=== PATIENT | female | born 1990 | race American Indian/Alaskan Native ===

== ENCOUNTER 2016-12-22 11:19 | Emergency (ER) | payer OTHER ==
[2016-12-22 13:29] LABS: Bacteria,Urine 1+ /HPF (Negative); Bilirubin,Urine NEG (Negative); Blood,Urine SM (Negative); Ketones,Urine NEG (Negative); Leukocyte Esterase,Urine LG (Negative); Nitrite,Urine NEG (Negative); Protein,Urine <15 mg/dL mg/dL (Negative); Urobilinogen,Urine < 2.0 mg/dL (<2.0)
[2016-12-22 18:26] VITALS: BP 153/106
--- NOTE | 2016-12-22 18:30 | Emergency Department Report ---
Entered by RYAN PARDO, acting as scribe for ASIYA NICE PA. ED Female HPI - General Chief complaint: Urogenital-Female Stated complaint: BLOOD IN URINE/POSS HIGH BP Time Seen by Provider: 12/22/16 17:53 Source: patient Mode of arrival: Ambulatory Limitations: No Limitations - History of Present Illness Initial comments: 26 y/o female with no significant PMHx, presents to the ED c/o urinary urgency and straining to urinate beginning this morning at approximately 03:00. Associated symptom of hematuria described as streaks of blood in the urine, but she denies vaginal bleeding, vaginal discharge, back pain, fever, nausea, vomiting, chest pain, and SOB. Patient has Hx of UTI in the past. Noted the patient feels fatigued at rest and states she thinks it is due to her blood pressure. She was told 13 years ago she had high blood pressure, but has not been evaluated for it since. MD Complaint: other (urinary urgency, streaks of blood in urine, straining to urinate) -: This morning (03:00) Radiation: non-radiating Severity: moderate Consistency: constant Improves with: none Worsens with: urination Associated Symptoms: denies: vaginal discharge, vaginal bleeding, abdominal pain , nausea/vomiting, fever/chills, other (chest pain, SOB, back pain) - Related Data Previous Rx's Medication Instructions Recorded Last Taken Type Sulfamethoxazole/Trimethoprim 1 each PO BID #10 tablet 12/22/16 Unknown Rx [Bactrim DS TAB] Allergies Allergy/AdvReac Type Severity Reaction Status Date / Time Penicillins AdvReac Itching Verified 12/22/16 12:39 ED Review of Systems Comment: All other systems reviewed and negative Constitutional: other (fatigue). denies: fever Respiratory: denies: shortness of breath Cardiovascular: denies: chest pain Gastrointestinal: denies: nausea, vomiting Genitourinary: urgency (straining to urinate), hematuria (streaks of blood in urine). denies: discharge, other (vaginal bleeding) Musculoskeletal: denies: back pain ED Past Medical Hx - Past Medical History Hx Hypertension: Yes Additional medical history: POLYMYOSITIS - Surgical History Additional Surgical History: RIGHT KNEE SURGERY - Social History Smoking Status: Never Smoker Substance Use Type: Alcohol - Medications Home Medications: Home Medications Medication Instructions Recorded Confirmed Last Taken Type Sulfamethoxazole/Trimethoprim 1 each PO BID #10 tablet 12/22/16 Unknown Rx [Bactrim DS TAB] ED Physical Exam - General Limitations: No Limitations General appearance: alert, in no apparent distress - Head Head exam: Present: atraumatic, normocephalic - Eye Eye exam: Present: normal appearance - ENT ENT exam: Present: normal external ear exam - Neck Neck exam: Present: normal inspection, full ROM (supple) - Respiratory Respiratory exam: Present: normal lung sounds bilaterally. Absent: respiratory distress - Cardiovascular Cardiovascular Exam: Present: regular rate, normal rhythm, normal heart sounds. Absent: systolic murmur, diastolic murmur, rubs, gallop - GI/Abdominal GI/Abdominal exam: Present: soft, normal bowel sounds (bowel sounds normoactive) . Absent: tenderness, guarding, rebound - Extremities Exam Extremities exam: Present: normal inspection, full ROM - Back Exam Back exam: Present: normal inspection, full ROM. Absent: CVA tenderness (R), CVA tenderness (L) - Neurological Exam Neurological exam: Present: alert, oriented X3 ED Course Vital Signs 12/22/16 12:22 Temperature 98.4 F Pulse Rate 85 Respiratory 18 Rate Blood Pressure 160/106 O2 Sat by Pulse 100 Oximetry ED Medical Decision Making - Lab Data Vital Signs 12/22/16 12/22/16 12:22 18:26 Temperature 98.4 F Pulse Rate 85 89 Respiratory 18 18 Rate Blood Pressure 160/106 Blood Pressure 153/106 [Left] O2 Sat by Pulse 100 98 Oximetry Patient refuses blood pressure treatment at this time. She will follow up with he primary care provider. - Medical Decision Making 26 y/o female presents complaining of urinary urgency, hematuria described as streaks of blood in the urine, and having to strain when urinating, beginning this morning at approximately 03:00. Her urinalysis reveals leukocyte esterase and small blood. Patient also had elevated blood pressure today. As per the [employer] clinical policy on asymptomatic hypertension: Initiating treatment for asymptomatic hypertension in the ED is not necessary when patients have follow-up; (2) Rapidly lowering blood pressure in asymptomatic patients in the ED is unnecessary and may be harmful in some patients; (3) When ED treatment for asymptomatic hypertension is initiated, blood pressure management should attempt to gradually lower blood pressure and should not be expected to be normalized during the initial ED visit. Emphasized the importance of follow up with primary care physician and explained to patient that uncontrolled hypertension can lead to long-term complications of hypertension/elevated blood pressure including stroke, heart attack, disability, , paralysis, permanent loss of quality of life. Patient expressed understanding. Patient is in no acute distress at this time. She will be discharged home and is encouraged to follow up with a primary care provider. She is sent home on Bactrim and is encouraged to return to the emergency room for any worsening symptoms. ED Disposition Clinical Impression: Elevated blood pressure UTI (urinary tract infection) Qualifiers: Urinary tract infection type: acute cystitis Hematuria presence: with hematuria Qualified Code(s): N30.01 - Acute cystitis with hematuria Disposition: DISCHARGED TO HOME OR SELFCARE Is pt being admited?: No Does the pt Need Aspirin: No Condition: Stable Instructions: Urinary Tract Infection in Women (ED), Hypertension (ED) Additional Instructions: Follow with primary care provider. Return to the emergency department if symptoms worsen. Prescriptions: Sulfamethoxazole/Trimethoprim [Bactrim DS TAB] 1 each PO BID #10 tablet Referrals: PRIMARY CARE, [Primary Care Provider] - 3-5 Days [facility] [Outside] - 3-5 Days Forms: Work/School Release Form(ED) Time of Disposition: 18:24 This documentation as recorded by the EDVIN tarango GRACE,accurately reflects the service I personally performed and the decisions made by ,ASIYA NICE PA.
== END 2016-12-22 18:30 | disposition home or self-care (01) ==
LOC: ED 11:19
DX: N30.01 Acute cystitis with hematuria (principal); I10 Essential (primary) hypertension
CPT/HCPCS: 81001; 81025; 99283

== ENCOUNTER 2017-02-09 08:44 | Emergency (ER) | payer OTHER ==
[2017-02-09 09:37] LABS: Basophils % (Auto) 0.5 % (0.0-1.8); Eosinophils % (Auto) 1.5 % (0.0-4.3); Hematocrit 34.1 % (30.3-42.9); Mean Corpuscular HGB Conc 32 % (30-34); Mean Corpuscular Volume 79 fl (79-97); Platelet Count 306 K/mm3 (140-440); Red Blood Count 4.32 M/mm3 (3.65-5.03); Red Cell Distribution Width 16.7 % (13.2-15.2); White Blood Count 4.8 K/mm3 (4.5-11.0)
[2017-02-09 09:39] LABS: Alanine Aminotransferase 8 units/L (7-56); Albumin 3.7 g/dL (3.9-5); Albumin/Globulin Ratio 0.9 %; Alkaline Phosphatase 69 units/L (35-129); Anion Gap 15 mmol/L; Blood Urea Nitrogen 8 mg/dL (7-17); Carbon Dioxide 24 mmol/L (22-30); Chloride 103.3 mmol/L (98-107); Glucose 103 mg/dL (65-100); Lipase 32 units/L (13-60); Potassium 3.8 mmol/L (3.6-5.0); Sodium 138 mmol/L (137-145); Total Protein 7.7 g/dL (6.3-8.2)
[2017-02-09 09:49] LABS: Mean Corpuscular Hemoglobin 26 pg (28-32)
[2017-02-09 10:00] LABS: Bilirubin,Urine NEG (Negative); Blood,Urine NEG (Negative); Ketones,Urine TR mg/dL (Negative); Leukocyte Esterase,Urine NEG (Negative); Mucus,Urine FEW /HPF; Nitrite,Urine NEG (Negative); Protein,Urine <15 mg/dL mg/dL (Negative)
[2017-02-09] MEDS ORDERED: NORMODYNE PO ONE (12:48)
[2017-02-09] MEDS ORDERED: TYLENOL PO ONE ×3 (12:48→12:55)
[2017-02-09] MEDS ORDERED: ZOFRAN ODT PO ONE (12:48)
--- NOTE | 2017-02-09 14:24 | Ultrasound Report ---
Pelvic and transvaginal sonography: History: Pelvic pain. Findings: Uterus measures 10.0 6.1 x 6.7 cm. Single intrauterine gestation is noted. Gestational sac diameter 3.3 mm corresponding to 5 weeks of gestation. No pole or yolk sac identified. Right ovary 4.3 x 2.5 x 2.7 cm. Complex cyst in the right ovary measures 2 cm. And a second complex cyst measures 2.1 cm. Simple cyst at the right ovary measures 1.1 cm. Left ovary 3.6 x 1.4 x 1.8 cm. No mass. Impression: Single intrauterine gestational sac. Multiple cysts right ovary.
[2017-02-09] MEDS ORDERED: ALUM-MAG HYDROX-SIMETH 200-200-20MG/5ML PO ONE (15:15)
--- NOTE | 2017-02-09 15:17 | Emergency Department Report ---
ED Abdominal Pain HPI - General Chief Complaint: Abdominal Pain Stated Complaint: ABD PAIN Time Seen by Provider: 02/09/17 12:36 Source: patient Mode of arrival: Ambulatory Limitations: No Limitations - History of Present Illness Initial Comments: 26 year old female with a past medical history hypertension and polymyositis possess a hospital complains of upper abdominal pain for the past 3 days. Pain is in the epigastric area, rated a sestamibi intensity, intermittent, physical cramp. Denies any specific aggravating or alleviating factors. Decreased by mouth intake due to nausea and intermittent vomiting since yesterday. Patient complains of left hip pain secondary to polymyositis that radiates towards the pelvic area. No reports of fever, dysuria, back discharge, vaginal bleeding, melena, hematochezia, or diarrhea. LMP: 01/30/2017. History of one producing one child. Patient also presents with elevated blood pressure. Patient has not been on medications for blood pressure for several years. She complains of intermittent headaches for the last week and has been using over- the-counter Excedrin Migraine daily. Severity scale (0 -10): 0 - Related Data Previous Rx's Medication Instructions Recorded Last Taken Type Famotidine [Pepcid] 20 mg PO BID #60 tablet 02/09/17 Unknown Rx Mag Hydrox/Al Hydrox/Simeth 20 ml PO QID PRN #1 bottle 02/09/17 Unknown Rx [Maalox Advanced Suspension] Ondansetron [Zofran Odt] 4 mg PO Q6HR PRN #20 tab.rapdis 02/09/17 Unknown Rx Vit W-Ca,Fe,FA(<1 mg) 1 each PO DAILY #30 tablet 02/09/17 Unknown Rx [ Vitamins] RX: Labetalol [Normodyne TAB] 100 mg PO BID #60 tablet 02/09/17 Unknown Rx Allergies Allergy/AdvReac Type Severity Reaction Status Date / Time Penicillins AdvReac Itching Verified 12/22/16 12:39 ED Review of Systems ROS: Stated complaint: ABD PAIN Other details as noted in HPI Comment: All other systems reviewed and negative Other: Constitutional: No fevers chills Eyes: No eye pain visual changes ENT: No ear pain or throat pain Neck: Denies pain Respiratory: Denies cough wheezing shortness of breath Cardiovascular: Denies chest pain, palpitations, syncope GI: as per hpi : Denies dysuria Musculoskeletal: Denies back pain Skin: Denies rash, lesions, erythema Neurologic: Denies headache, numbness, weakness Psychiatric: Denies suicidal ideation, hallucinations ED Past Medical Hx - Past Medical History Hx Hypertension: Yes Additional medical history: POLYMYOSITIS - Surgical History Additional Surgical History: RIGHT KNEE SURGERY - Social History Smoking Status: Never Smoker Substance Use Type: None - Medications Home Medications: Home Medications Medication Instructions Recorded Confirmed Last Taken Type Famotidine [Pepcid] 20 mg PO BID #60 tablet 02/09/17 Unknown Rx Mag Hydrox/Al Hydrox/Simeth 20 ml PO QID PRN #1 bottle 02/09/17 Unknown Rx [Maalox Advanced Suspension] Ondansetron [Zofran Odt] 4 mg PO Q6HR PRN #20 tab.rapdis 02/09/17 Unknown Rx Vit W-Ca,Fe,FA(<1 mg) 1 each PO DAILY #30 tablet 02/09/17 Unknown Rx [ Vitamins] RX: Labetalol [Normodyne TAB] 100 mg PO BID #60 tablet 02/09/17 Unknown Rx ED Physical Exam - General Limitations: No Limitations - Other Other exam information: General: No limitations, patient is alert in no acute distress Head exam: Atraumatic, normocephalic Eyes exam: Normal appearance, pupils equal reactive to light, extraocular movements intact ENT: Moist mucous membrane, normal oropharynx Neck exam: Normal inspection, full range of motion, no meningismus nontender Respiratory exam: Clear to auscultation bilateral, no wheezes, rales, crackles Cardiovascular: Normal rate and rhythm, normal heart sounds Abdomen: Soft, nondistended, epigastric tenderness to palpation. No lower abdominal tenderness. Normal bowel sounds, no rebound, or guarding Extremity: Full range of motion normal inspection no deformity Back: Normal Inspection, full range of motion, no tenderness Neurologic: Alert, oriented x3, cranial nerves intact, no motor or sensory deficit Psychiatric: normal affect, normal mood Skin: Warm, dry, intact ED Course Vital Signs 02/09/17 02/09/17 02/09/17 09:02 12:15 12:40 Temperature 98.3 F 98.3 F Pulse Rate 90 94 H 109 H Respiratory 16 16 16 Rate Blood Pressure 160/102 Blood Pressure 182/112 159/100 [Left] O2 Sat by Pulse 100 100 100 Oximetry 02/09/17 12:41 Temperature Pulse Rate Respiratory 16 Rate Blood Pressure Blood Pressure [Left] O2 Sat by Pulse 100 Oximetry - Reevaluation(s) Reevaluation #1: 02/09/17 15:18 She treated with Tylenol, Zofran, labetalol. Maalox also ordered at this time Reevaluation #2: 02/09/17 15:31 BP 150/97 with a heart rate 96 prior to discharge ED Medical Decision Making - Lab Data Result diagrams: 02/09/17 09:09 02/09/17 09:09 Lab Results 02/09/17 02/09/17 02/09/17 Range/Units 09:09 09:09 09:30 WBC 4.8 (4.5-11.0) K/mm3 RBC 4.32 (3.65-5.03) M/mm3 Hgb 11.0 (10.1-14.3) gm/dl Hct 34.1 (30.3-42.9) % MCV 79 (79-97) fl MCH 26 L (28-32) pg MCHC 32 (30-34) % RDW 16.7 H (13.2-15.2) % Plt Count 306 (140-440) K/mm3 Lymph % (Auto) 38.2 H (13.4-35.0) % Ada % (Auto) 9.0 H (0.0-7.3) % Eos % (Auto) 1.5 (0.0-4.3) % Baso % (Auto) 0.5 (0.0-1.8) % Lymph # 1.8 (1.2-5.4) K/mm3 Ada # 0.4 (0.0-0.8) K/mm3 Eos # 0.1 (0.0-0.4) K/mm3 Baso # 0.0 (0.0-0.1) K/mm3 Seg Neutrophils % 50.8 (40.0-70.0) % Seg Neutrophils # 2.4 (1.8-7.7) K/mm3 Sodium 138 (137-145) mmol/L Potassium 3.8 (3.6-5.0) mmol/L Chloride 103.3 (98-107) mmol/L Carbon Dioxide 24 (22-30) mmol/L Anion Gap 15 mmol/L BUN 8 (7-17) mg/dL Creatinine 0.5 L (0.7-1.2) mg/dL Estimated GFR > 60 ml/min BUN/Creatinine Ratio 16.00 % Glucose 103 H (65-100) mg/dL Calcium 9.0 (8.4-10.2) mg/dL Total Bilirubin 0.20 (0.1-1.2) mg/dL AST 12 (5-40) units/L ALT 8 (7-56) units/L Alkaline Phosphatase 69 (35-129) units/L Total Protein 7.7 (6.3-8.2) g/dL Albumin 3.7 L (3.9-5) g/dL Albumin/Globulin Ratio 0.9 % Lipase 32 (13-60) units/L HCG, Quant (0-4) mIU/mL Urine Color Yellow (Yellow) Urine Turbidity Clear (Clear) Urine pH 5.0 (5.0-7.0) Ur Specific [place] 1.025 (1.003-1.030) Urine Protein <15 mg/dl (Negative) mg/dL Urine Glucose (UA) Neg (Negative) mg/dL Urine Ketones Tr (Negative) mg/dL Urine Blood Neg (Negative) Urine Nitrite Neg (Negative) Urine Bilirubin Neg (Negative) Urine Urobilinogen 2.0 (<2.0) mg/dL Ur Leukocyte Esterase Neg (Negative) Urine WBC (Auto) 1.0 (0.0-6.0) /HPF Urine RBC (Auto) 2.0 (0.0-6.0) /HPF U Epithel Cells (Auto) 1.0 (0-13.0) /HPF Urine Mucus Few /HPF Urine HCG, Qual Positive A (Negative) Blood Type Ord Rhogam Gestat Weeks WEEKS 02/09/17 02/09/17 Range/Units 12:42 12:54 WBC (4.5-11.0) K/mm3 RBC (3.65-5.03) M/mm3 Hgb (10.1-14.3) gm/dl Hct (30.3-42.9) % MCV (79-97) fl MCH (28-32) pg MCHC (30-34) % RDW (13.2-15.2) % Plt Count (140-440) K/mm3 Lymph % (Auto) (13.4-35.0) % Ada % (Auto) (0.0-7.3) % Eos % (Auto) (0.0-4.3) % Baso % (Auto) (0.0-1.8) % Lymph # (1.2-5.4) K/mm3 Ada # (0.0-0.8) K/mm3 Eos # (0.0-0.4) K/mm3 Baso # (0.0-0.1) K/mm3 Seg Neutrophils % (40.0-70.0) % Seg Neutrophils # (1.8-7.7) K/mm3 Sodium (137-145) mmol/L Potassium (3.6-5.0) mmol/L Chloride (98-107) mmol/L Carbon Dioxide (22-30) mmol/L Anion Gap mmol/L BUN (7-17) mg/dL Creatinine (0.7-1.2) mg/dL Estimated GFR ml/min BUN/Creatinine Ratio % Glucose (65-100) mg/dL Calcium (8.4-10.2) mg/dL Total Bilirubin (0.1-1.2) mg/dL AST (5-40) units/L ALT (7-56) units/L Alkaline Phosphatase (35-129) units/L Total Protein (6.3-8.2) g/dL Albumin (3.9-5) g/dL Albumin/Globulin Ratio % Lipase (13-60) units/L HCG, Quant 819.9 H (0-4) mIU/mL Urine Color (Yellow) Urine Turbidity (Clear) Urine pH (5.0-7.0) Ur Specific [place] (1.003-1.030) Urine Protein (Negative) mg/dL Urine Glucose (UA) (Negative) mg/dL Urine Ketones (Negative) mg/dL Urine Blood (Negative) Urine Nitrite (Negative) Urine Bilirubin (Negative) Urine Urobilinogen (<2.0) mg/dL Ur Leukocyte Esterase (Negative) Urine WBC (Auto) (0.0-6.0) /HPF Urine RBC (Auto) (0.0-6.0) /HPF U Epithel Cells (Auto) (0-13.0) /HPF Urine Mucus /HPF Urine HCG, Qual (Negative) Blood Type B POSITIVE Ord Rhogam Gestat Weeks Rh pos WEEKS - Radiology Data Radiology results: report reviewed (transvaginal/pelvic ultrasound: Single intrauterine gestational sac corresponding 5 weeks gestation no pole or yolk sac. Multiple cysts in the right ovary) - Medical Decision Making Plan to d/c pt home on meds for dyspesia, vitamins, nausea, and htn. Outpatient follow-up with [facility] and primary care doctor will be encouraged. Patient is Rh- and does not require RhoGAM no active bleeding at this time. - Differential Diagnosis gastritis, PUD, , pancreatitis Critical Care Time: No Critical care attestation.: If time is entered above; I have spent that time in minutes in the direct care of this critically ill patient, excluding procedure time. ED Disposition Clinical Impression: Dyspepsia, 5 weeks gestation of , HTN (hypertension), Right ovarian cyst Disposition: DISCHARGED TO HOME OR SELFCARE Is pt being admited?: No Does the pt Need Aspirin: No Condition: Stable Instructions: (ED), Ovarian Cyst (ED), Chronic Indigestion (ED), Hypertension (ED) Additional Instructions: Take the medication as prescribed. Take Tylenol as needed for pain. Follow-up with the [facility] doctor and primary care doctor for further workup and evaluation. You have been provided a [facility] doctor and her primary care doctor if he did not have one already. Please return if symptoms worsen. Prescriptions: Famotidine [Pepcid] 20 mg PO BID #60 tablet RX: Labetalol [Normodyne TAB] 100 mg PO BID #60 tablet Mag Hydrox/Al Hydrox/Simeth [Maalox Advanced Suspension] 20 ml PO QID PRN #1 bottle PRN Reason: Indigestion Ondansetron [Zofran Odt] 4 mg PO Q6HR PRN #20 tab.rapdis PRN Reason: Nausea And Vomiting Vit W-Ca,Fe,FA(<1 mg) [ Vitamins] 1 each PO DAILY #30 tablet Referrals: RADHA CARRION MD [Staff Physician] - 3-5 Days (dog groomer doctor) LAILA TIWARI MD [Staff Physician] - 3-5 Days (Primary care doctor) Time of Disposition: 15:27
[2017-02-09 15:42] VITALS: BP 150/96
== END 2017-02-09 15:42 | disposition home or self-care (01) ==
LOC: ED 08:44
DX: O16.1 Unspecified maternal hypertension, first trimester (principal); O34.81 Maternal care for other abnormalities of pelvic organs, first trimester; Z3A.01 Less than 8 weeks gestation of pregnancy
CPT/HCPCS: 36415; 76801; 76817; 80053; 81001; 81025; 83690; 84702; 85025; 86900; 86901; 99284; Q0162